=== PATIENT | male | born 1995 | race American Indian/Alaskan Native ===

== ENCOUNTER 2018-06-12 03:20 | Emergency (ER) | payer BC, MEDICAID, OTHER ==
--- NOTE | 2018-06-12 05:26 | C.PDOC ---
History Of Present Illness 22-year-old male is brought to the ED by EMS for evaluation. As per EMS, patient was supposedly attempting to get into someone's window, and seemed to be altered. Patient admits to smoking marijuana earlier tonight and offers no complaints at this time. When questioned, patient appears to be foggy and unclear with details. Additional information limited secondary to patient's altered status. Time Seen by Provider: 06/12/18 03:58 Chief Complaint (Nursing): Substance Abuse History Per: EMS History/Exam Limitations: other (altered ) Onset/Duration Of Symptoms: Hrs Current Symptoms Are (Timing): Still Present Modifying Factor(s): Marijuana Additional History Per: EMS Past Medical History Reviewed: Historical Data, Nursing Documentation, Vital Signs Vital Signs: Last Vital Signs Temp 97 F L 06/12/18 03:37 Pulse 80 06/12/18 03:37 Resp 14 06/12/18 03:37 BP 121/79 06/12/18 03:37 Pulse Ox 98 06/12/18 03:37 - Medical History PMH: Anxiety, Depression Denies: Diabetes, Hepatitis, HIV, HTN, Chronic Kidney Disease, Seizures, Sexually Transmitted Disease Surgical History: No Surg Hx - [facility] Procedures INDIVID PSYCHOTHERAP NEC (12/23/13) INFLUENZA VACCINATION (12/23/13) OTHER GROUP THERAPY (08/19/14) PSYCHIA INTERV/EVAL NEC (06/17/13) Family History: States: Unknown Family Hx - Social History Hx Tobacco Use: Yes Hx Alcohol Use: Yes (not abuse) Hx Substance Use: No - Immunization History Hx Tetanus Toxoid Vaccination: No Hx Influenza Vaccination: No Hx Pneumococcal Vaccination: No Review Of Systems Review Of Systems: ROS cannot be obtained secondary to pt's inabilty to answer questions. Physical Exam - Physical Exam Appears: Non-toxic, No Acute Distress, Other (comfortable ) Skin: Normal Color, Warm, No Rash, Other (no obvious signs of trauma ) Head: Atraumatic, Normacephalic Chest: Symmetrical, No Deformity Respiratory: Other (normal inspiratory and expiratory flow ) Gastrointestinal/Abdominal: Soft Extremity: Normal ROM Extremity: Bilateral: Atraumatic Neurological/Psych: Other (awake, alert and oriented x1 ) ED Course And Treatment O2 Sat by Pulse Oximetry: 98 (on RA ) Pulse Ox Interpretation: Normal Medical Decision Making Medical Decision Making: Progress: Urine drug screen ordered and reviewed. patient refused to give urine. he is alert and oriented at this time. he is following instruction and well appearing at this time. Disposition Counseled Patient/Family Regarding: Diagnosis, Need For Followup - Disposition Disposition: HOME/ ROUTINE Disposition Time: 07:02 Condition: STABLE Instructions: Drug Abuse and Drug Addiction (DC) Forms: [facility] (Faroese), General Discharge Instructions - Clinical Impression Clinical Impression: Drug abuse - PA / SANITIZER / Resident Statement MD/DO has reviewed & agrees with the documentation as recorded. - Scribe Statement The provider has reviewed the documentation as recorded by the Scribe (Ammy James) All medical record entries made by the Scribe were at my direction and personally dictated by me. I have reviewed the chart and agree that the record accurately reflects my personal performance of the history, physical exam, medical decision making, and the department course for this patient. I have also personally directed, reviewed, and agree with the discharge instructions and disposition.
[2018-06-12 06:03] VITALS: BP 116/68; PULSE 69; RESP 16; TEMP 98
[2018-06-12 06:53] VITALS: O2SAT 98
== END 2018-06-12 07:21 | disposition home or self-care (01) ==
LOC: C.ER 03:20
DX: F19.10 Other psychoactive substance abuse, uncomplicated (principal)

== ENCOUNTER 2018-07-14 10:51 | Inpatient (IN) | payer BC, MEDICAID, OTHER ==
[2018-07-14 10:59] VITALS: BMI 29.5
[2018-07-14 12:15] LABS: BASO % 0.8 % (0.0-2.0); EOS % 1.3 % (0.0-4.0); HEMOGLOBIN 13.4 g/dL (12.0-18.0); LYMPH # 1.2 K/uL (1.0-4.3); LYMPH % 36.6 % (20.0-40.0); MEAN CORPUSCULAR HGB CONC 33.2 g/dL (33.0-37.0); MEAN PLATELET VOLUME 9.2 fL (7.2-11.7); MONO # 0.3 K/uL (0.0-0.8); MONO % 9.2 % (0.0-10.0); NEUT # 1.7 K/uL (1.8-7.0); NEUT % 52.1 % (50.0-75.0); NRBC % 0.2 % (0.0-2.0); RBC 4.05 Mil/uL (4.40-5.90); RED CELL DISTRIBUTION WIDTH 14.5 % (11.5-14.5); WHITE BLOOD COUNT 3.3 K/uL (4.8-10.8)
[2018-07-14 12:17] LABS: MEAN CELL VOLUME 99.6 fL (80.0-94.0)
[2018-07-14 12:24] LABS: URINE BILIRUBIN NEGATIVE (NEGATIVE); URINE BLOOD NEGATIVE (NEGATIVE); URINE CLARITY Clear (Clear); URINE COLOR Yellow (YELLOW); URINE GLUCOSE (UA) NORMAL (Normal); URINE LEUKOCYTE ESTERASE NEG Leu/uL (Negative); URINE PROTEIN NEGATIVE (NEGATIVE)
[2018-07-14 12:26] LABS: ALB/GLOB RATIO 1.5 (1.0-2.1); ALBUMIN 4.3 g/dL (3.5-5.0); ALT/SGPT 21 U/L (21-72); AST/SGOT 27 U/L (17-59); BLOOD UREA NITROGEN 16 mg/dL (9-20); CALCIUM 9.6 mg/dl (8.6-10.4); GFR NON-AFRICAN AMERICAN > 60
--- NOTE | 2018-07-14 12:36 | C.PDOC ---
History Of Present Illness 22 y/o male, with history of bipolar disorder and aggressive behavior, presents to ED stating he is feeling like he could hurt someone but has no plan. Denies SI or hallucinations. Patient has not taken any of his medications because it is at his mothers house. Chief Complaint (Nursing): Psychiatric Evaluation History Per: Patient History/Exam Limitations: no limitations Onset/Duration Of Symptoms: Days Current Symptoms Are (Timing): Still Present Past Medical History Reviewed: Historical Data, Nursing Documentation, Vital Signs Vital Signs: Last Vital Signs Temp 97.5 F L 07/14/18 10:56 Pulse 90 07/14/18 10:56 Resp 18 07/14/18 10:56 BP 125/73 07/14/18 10:56 Pulse Ox 98 07/14/18 10:56 Primary Care Provider: FAMILY PROVIDER,NO - Medical History PMH: Anxiety, Bipolar Disorder, Depression Denies: Diabetes, Hepatitis, HIV, HTN, Chronic Kidney Disease, Seizures, Sexually Transmitted Disease - [facility] Procedures INDIVID PSYCHOTHERAP NEC (12/23/13) INFLUENZA VACCINATION (12/23/13) OTHER GROUP THERAPY (08/19/14) PSYCHIA INTERV/EVAL NEC (06/17/13) Family History: States: No Known Family Hx - Social History Hx Tobacco Use: Yes Hx Alcohol Use: Yes (not abuse) Hx Substance Use: No - Immunization History Hx Tetanus Toxoid Vaccination: Yes Hx Influenza Vaccination: Yes Hx Pneumococcal Vaccination: No Review Of Systems Except As Marked, All Systems Reviewed And Found Negative. Constitutional: Negative for: Fever, Chills Psych: Positive for: Other (homicidal thoughts, no hallucinations). Negative for: Suicidal ideation Physical Exam - Physical Exam Appears: Non-toxic, No Acute Distress Skin: Warm, Dry Head: Normacephalic Eye(s): bilateral: Normal Inspection Oral Mucosa: Moist Neck: Supple Cardiovascular: Rhythm Regular, No Murmur Respiratory: Normal Breath Sounds, No Rales, No Rhonchi, No Wheezing Gastrointestinal/Abdominal: Soft, No Tenderness Extremity: Bilateral: Atraumatic, Normal Color And Temperature, Normal ROM Neurological/Psych: Oriented x3, Normal Speech ED Course And Treatment - Laboratory Results Result Diagrams: 07/14/18 12:04 07/14/18 12:04 Lab Results: Total Bilirubin 0.7 mg/dL (0.2-1.3) 07/14/18 12:04 AST 27 U/L (17-59) 07/14/18 12:04 ALT 21 U/L (21-72) D 07/14/18 12:04 Alkaline Phosphatase 89 U/L (38-126) 07/14/18 12:04 Total Protein 7.1 g/dL (6.3-8.3) 07/14/18 12:04 Albumin 4.3 g/dL (3.5-5.0) 07/14/18 12:04 Globulin 2.8 gm/dL (2.2-3.9) 07/14/18 12:04 Albumin/Globulin Ratio 1.5 (1.0-2.1) 07/14/18 12:04 Urine Color Yellow (YELLOW) 07/14/18 12:04 Urine Clarity Clear (Clear) 07/14/18 12:04 Urine pH 5.0 (5.0-8.0) 07/14/18 12:04 Ur Specific [place] 1.024 (1.003-1.030) 07/14/18 12:04 Urine Protein Negative mg/dL (NEGATIVE) 07/14/18 12:04 Urine Glucose (UA) Normal mg/dL (Normal) 07/14/18 12:04 Urine Ketones Negative mg/dL (NEGATIVE) 07/14/18 12:04 Urine Blood Negative (NEGATIVE) 07/14/18 12:04 Urine Nitrate Negative (NEGATIVE) 07/14/18 12:04 Urine Bilirubin Negative (NEGATIVE) 07/14/18 12:04 Urine Urobilinogen 2.0 mg/dL (0.2-1.0) 07/14/18 12:04 Ur Leukocyte Esterase Neg Christine/uL (Negative) 07/14/18 12:04 Urine WBC (Auto) 1 /hpf (0-5) 07/14/18 12:04 Urine RBC (Auto) 1 /hpf (0-3) 07/14/18 12:04 O2 Sat by Pulse Oximetry: 98 (RA) Pulse Ox Interpretation: Normal Medical Decision Making Medical Decision Making: Plan: --Labs --UA Patient is medically cleared. Disposition Counseled Patient/Family Regarding: Studies Performed - Disposition Disposition: HOSPITALIZED Condition: STABLE Forms: [facility] (Nigerian) - Clinical Impression Clinical Impression: Bipolar disorder, unspecified - Scribe Statement The provider has reviewed the documentation as recorded by the Marika Lepe Provider Attestation: All medical record entries made by the Marika were at my direction and personally dictated by me. I have reviewed the chart and agree that the record accurately reflects my personal performance of the history, physical exam, medical decision making, and the department course for this patient. I have also personally directed, reviewed, and agree with the discharge instructions and disposition.
[2018-07-14 12:38] LABS: BARBITURATES, UR NEGATIVE (NEGATIVE); BENZODIAZEPINES, UR NEGATIVE (NEGATIVE); OPIATES, UR NEGATIVE (NEGATIVE); PHENCYCLIDINE, UR NEGATIVE (NEGATIVE)
[2018-07-14 15:39] VITALS: O2SAT 100
[2018-07-14] MEDS ORDERED: Bacitracin 500 Units/gm Oint Foilpak UD TOP ONE (16:19)
--- NOTE | 2018-07-14 17:54 | PCM.BM ---
<[place] - Last Filed: 07/14/18 17:52> Treatment Plan Problems - Problems identified on initial assessmt Depression Date Initiated: 07/14/18 Time Initiated: 17:53 Assessment reference: NA Status: Active Medication Nonadherence Date Initiated: 07/14/18 Time Initiated: 17:53 Assessment reference: NA Status: Active Agitated/agressive behavior Date Initiated: 07/14/18 Time Initiated: 17:53 Assessment reference: NA Status: Active Treatment assets and liabiliti Patient Assests: adapts well, cooperative, ADL independent, physically healthy, negotiates basic needs, cognitively intact Patient Liabilities: live alone, financial problems, substance abuse (THC) - Milieu Protocol Maintain good personal hygiene: daily Encourage regular showers, daily Remind patient to perform daily oral care, daily Assist patient to perform ADL's (Self), other Assist patient to perform ADL's Conduct patient checks and document Observation sheet: Q15 minutes (Safety) Maintain personal safety: every shift Educate patient to report safety concerns to staff, every shift Monitor environment for contraband/sharps Medication safety: Monitor for expected outcome, potential side effects: every shift, Assess barriers to learning: every shift, Assess readiness for medication education: every shift <Gracia Goddard - Last Filed: 07/17/18 12:32> Family Contact Family involvement: Family/SO is involved Family contact: Patient agrees to contact, Family has been contacted by patient - Goals for Treatment Patient goals for treatment: "I want to go to an outpatient program." Discharge/Continuing Care - Education Needs Education Needs: Patient Medication, Patient Diagnosis/Disease Process, Patient Coping Skills, Patient Placement options, Patient Community resources - Discharge Discharge Criteria: Free of Suicidal thoughts, Free of agitation, Normal sleep pattern, Ability to care for self, Reduction of target symptoms Discharge to:: Home - Treatment Team Participation Discussed with Family/SO: No Was Patient/Family/SO present at Treatment Team Meeting: Yes
--- NOTE | 2018-07-15 09:21 | PCM.PSYCH ---
Initial Psychiatric Evaluation - Initial Psychiatric Evaluation Type of Admission: Voluntary Legal Status: Capacity Chief Complaint (in patient's own words): "I got agitated, paranoid, I skipped meds for 2 days" History of Present Illness and Precipitating Events: THe pt is seen, chart reviewed, case discussed He is a 22 yo single AAM, no child, lives with his mother he said but his mo was contacted by our certified social workers in health care and she told him that she has a restraining order and the pt lives with friends. He is unemployed bc he says he doesn't have a work visa. He is from [facility] and has been here since 2009 bc of mother's [employer] job. He reported to the caption writer that he had been dx'ed with bipolar d/o and was seeing a psychiatrist at [facility]. Stitcher Around called his pharmacy and learned that he was on Trileptal, low dose Zoloft, Gabapentin and got a 50 mg seroquel rx 5-6 weeks ago. Pt claimed he skipped meds for 2-3 days bc his mother was out of town and he did not have access home. He then started to get agitated, having urges to fight and "hurt someone" and came to ER He denies feeling suicidal but feels high energy, poor sleep, racing thoughts, anger/irritability "outbursts" He is positive for MJ and denies alcohol and other drugs Not depressed, has anxiety Past psych hx: Multiple admissions during HS with attempts of suicide and lots of fighting Medical hx: Denied Family psych hx: Unknown. "You know people hide it in [place]" Current Medications: Active Medications Generic Name Dose Route Start Last Admin Trade Name Freq PRN Reason Stop Dose Admin Gabapentin 300 mg 07/14/18 18:30 07/14/18 18:23 Neurontin PO 300 mg BID FLORES Administration Hydroxyzine HCl 25 mg 07/14/18 18:15 07/14/18 22:16 Atarax PO 25 mg Q4H PRN Administration Anxiety Ibuprofen 600 mg 07/14/18 18:09 07/14/18 18:21 Motrin Tab PO 600 mg Q6 PRN Administration Pain, moderate (4-7) Trazodone HCl 50 mg 07/14/18 18:15 Desyrel PO HS PRN Insomnia Past Psychiatric History - Past Psychiatric History Previous Treatment History: Inpatient Pertinent Medical Hx (Current Medical&Sleep Prob, Allergies): Allergies Allergy/AdvReac Type Severity Reaction Status Date / Time No Known Allergies Allergy Verified 07/14/18 10:55 Bipolar Medications 07/14/18 Review of Systems - Psychiatric Psychiatric: Abnormal Sleep Pattern, Anxiety, Behavioral Changes, Difficulty Concentrating, Irritability, Mood Swings, Paranoia. absent: Homicidal Ideation, Suicidal Ideation Mental Status Examination - Personal Presentation Personal Presentation: Looks stated age - Affect Affect: Constricted - Motor Activity Motor Activity: Calm - Reliability in Providing Information Reliability in Providing Information: Fair (hid his mo's restraining order against him) - Speech Speech: Organized - Mood Mood: Anxious - Formal Thought Process Formal Thought Process: Paranoia - Cognitive Functions Orientation: Person, Place, Situation, Time Sensorium: Alert Attention/Concentration: Easily distracted Abstract Thinking: Willard Estimate of Intelligence: Average Judgement: Imparied, as evidence by: Poor judgement Memory: Recent intact, as evidence by: Ability to recall events of the day, Remote intact, as evidenced by: Ability to recall historical events - Risk Risk: Diminished functioning - Strength & Assets Inventory Strength & Assets Inventory: Cooperative - Limitations Limitations: Other DSM 5 DX - DSM 5 DSM 5 Diagnosis: Bipolar 1 d/o - manic, severe Cannabis use d/o - severe r/o Personality d/o Anxiety d/o - unspecified - Recommended/Plan of Treatment Treatment Recommendations and Plan of Treatment: Depakote and Risperidone instead of Trileptal and low dose seroquel Hold zoloft for now due to manix sxs Continue gabapentin for anxiety and cannabis wdw As need medications All risks, benefits and alternatives of the meds discussed, and the pt agreed and understood. Attend groups and activities Individual therapy daily Psychoeducation and support daily Encourage compliance with meds and after care Refer to outpatient program Teach healthy lifestyle methods, i.e. diet, exercise, meditation Smoking cessation and patch if needed 32 min Projected ELOS: 5-6 days Prognosis: good w treatment - Smoking Cessation Smoking Cessation Initiated: Yes
[2018-07-16 06:55] VITALS: RESP 20
[2018-07-16] MEDS: Divalproex 500 mg DR Tab PO SCH ×2 (09:52→17:50)
--- NOTE | 2018-07-16 11:24 | PCM.PYCHPN ---
Psychiatric Progress Note - Psychiatric Progress Note Patient seen today, length of contact: 16 min Patient Chief Complaint: "I am better than yesterday" Problems Identified/Issues Discussed: The pt is seen, chart reviewed, case is discussed with staff. The pt is compliant with medications and reports no side-effects. Symptoms are improving but needs more time to stabilize and to avoid relapse. Pt still claims he can return to his mother's. Lease Administration Supervisor did not confront him with the fact that she has an OOP againsy him, as it may have set him off. Yesterday he was instigating fights with a manic female patient. Support given, psycho-education provided. After care discussed. Medication Change: Yes Medical Record Reviewed: Yes Mental Status Examination - Cognitive Function Orientation: Person, Place, Situation, Time Memory: Intact Attention: Poor Concentration: Poor Association: WNL Fund of Knowledge: Poor - Mood Mood: Anxious - Affect Affect: Constricted - Speech Speech: Appropriate - Formal Thought Process Formal Thought Process: Paranoia - Suicidal Ideation Suicidal Ideation: No - Homicidal Ideation Homicidal Ideation: No Goal/Treatment Plan - Goal/Treatment Plan Need for Continued Stay: Discharge may exacerbated symptoms, Severe functional impairment Progress Toward Problem(s) and Goals/Treatment Plan: Depakote and Risperidone instead of Trileptal and low dose seroquel Hold zoloft for now due to manix sxs Continue gabapentin for anxiety and cannabis wdw As need medications All risks, benefits and alternatives of the meds discussed, and the pt agreed and understood. Attend groups and activities Individual therapy daily Psychoeducation and support daily Encourage compliance with meds and after care Refer to outpatient program Teach healthy lifestyle methods, i.e. diet, exercise, meditation Smoking cessation and patch if needed
[2018-07-17 06:33] VITALS: BP 97/54; PULSE 69; TEMP 97.7
[2018-07-17] MEDS: Divalproex 500 mg DR Tab PO SCH (09:49)
--- NOTE | 2018-07-17 12:10 | PCM.PYCHDC ---
Mental Status Examination - Mental Status Examination Orientation: Person Discharge Summary - Discharge Note Consultations:: List each consultation separately and include: 1. Reason for request. 2. Findings. 3. Follow-up Summary of Hospital Course include:: 1. Description of specific treatment plan utilized for patients during their course of treatmen. 2. Summarize the time- course for resolution of acute symptoms and/or regressed behaviors. 3. Describe issues identified and worked on during hospitalization. 4. Describe medication utilized. 5. Describe medical problems identified and treated. 6. Reassessment of suicide risk Summary of Hospital Course: THe pt is seen, chart reviewed, case discussed He is a 22 yo single AAM, no child, lives with his mother he said but his mo was contacted by our harvest worker fruit and she told him that she has a restraining order and the pt lives with friends. He is unemployed bc he says he doesn't have a work visa. He is from [facility] and has been here since 2009 bc of mother's [employer] job. He reported to the caption writer that he had been dx'ed with bipolar d/o and was seeing a psychiatrist at [facility]. House Repairer called his pharmacy and learned that he was on Trileptal, low dose Zoloft, Gabapentin and got a 50 mg seroquel rx 5-6 weeks ago. Pt claimed he skipped meds for 2-3 days bc his mother was out of town and he did not have access home. He then started to get agitated, having urges to fight and "hurt someone" and came to ER He denies feeling suicidal but feels high energy, poor sleep, racing thoughts, anger/irritability "outbursts" He is positive for MJ and denies alcohol and other drugs Not depressed, has anxiety Past psych hx: Multiple admissions during HS with attempts of suicide and lots of fighting Medical hx: Denied Family psych hx: Unknown. "You know people hide it in [place]" He asked to leave early today, instead of Tuesday. He says he will go back to [facility], not [place] ("That was old, not new" he claims) Our SW contacted his mother who confirmed that the pt indeed has a court tomorrow, some pre-court trial actually. And that he seemed better to her. He understood the risks of leaving early and AMA. He is future oriented and not homicidal. Still at times irate, though. - Final Diagnosis (DSM 5) Condition upon Discharge: IMPROVED Disposition: AGAINST MEDICAL ADVICE Follow-up Treatment Plan: Depakote and Risperidone instead of Trileptal and low dose seroquel Hold zoloft for now due to manix sxs Continue gabapentin for anxiety and cannabis wdw As need medications All risks, benefits and alternatives of the meds discussed, and the pt agreed and understood. Attend groups and activities Individual therapy daily Psychoeducation and support daily Encourage compliance with meds and after care Refer to outpatient program Teach healthy lifestyle methods, i.e. diet, exercise, meditation Smoking cessation and patch if needed
== END 2018-07-17 12:30 | disposition left against medical advice (07) | DRG 885 ==
LOC: C.ER 10:51 → C.9E 14:47 → C.5E 16:02
PROVIDERS: ADMIT Psychiatry & Neurology Psychiatry; ATTEND Psychiatry & Neurology Psychiatry
DX: F31.9 Bipolar disorder, unspecified (principal); F12.90 Cannabis use, unspecified, uncomplicated; F41.9 Anxiety disorder, unspecified; Z87.891 Personal history of nicotine dependence